=== PATIENT | male | born 1940 | race Caucasian/White ===

== ENCOUNTER 2017-02-07 13:42 | Outpatient (CLI) | payer MEDICARE ==
--- NOTE | 2017-02-07 15:59 | CARDIAC PROCEDURE NOTE ---
DATE OF SERVICE: 02/07/2017 00:00:00 PRIMARY CARE PHYSICIAN: Dr. Vazquez. PROCEDURE: Cardiac treadmill stress test. REASON FOR PROCEDURE: Dyspnea on exertion. CARDIAC RISK FACTORS: Include age, hypertension, hyperlipidemia and family history. PREVIOUS CARDIAC PROCEDURES: No previous cardiac procedures. CLINICAL HISTORY: A 76-year-old male without known coronary artery disease. INITIAL RESTING VITAL SIGNS: BP 144/68, heart rate 64, height 69 inches, weight 178 pounds, BMI 25.5. PROCEDURE AND FINDINGS: The patient's identity and date verified. Consent signed. The patient p erformed treadmill exercise using a [place] protocol completing 5 minutes 55 seconds and completing an estimated workload of 7.0 metabolic equivalents. Predicted METs were 6.2. Maximal blood pressure was 190/98 with a heart rate of 120 beats per minute or 85% of maximum predicted heart rate for age. The blood pressure response to exercise was within normal limits. The patient stopped because of dyspnea. The resting ECG demonstrated normal sinus rhythm with early transition and nonspecific T-wave abnorm alities. Maximum ST segment depression was less than 0.5 mm and upsloping. There were occasional PACs . The 1 minute heart rate recovery was within normal limits. FINAL IMPRESSION 1. Negative stress electrocardiogram for ischemia by electrocardiographic criteria. 2. Negative stress test clinically for angina. 3. Occasional premature atrial contractions. 4. [place] [employer] functional class I. JOB #: [id number] EXT JOB #:[id number]
[2017-02-07 16:11] VITALS: BP 144/68
--- NOTE | 2017-02-11 13:12 | XRAY Report ---
There was no imaging performed for this exam. Procedure notes and results available in the EMR. GLYNN
== END 2017-02-07 13:43 | disposition home or self-care (01) ==
LOC: DI 13:42
PROVIDERS: ATTEND Internal Medicine
DX: R06.00 Dyspnea, unspecified (principal); I10 Essential (primary) hypertension; E78.5 Hyperlipidemia, unspecified
CPT/HCPCS: 93017

== ENCOUNTER 2018-09-27 17:45 | Emergency (ER) | payer MEDICARE ==
[2018-09-27 17:51] VITALS: BP 177/79
--- NOTE | 2018-09-27 18:50 | ED Physician Documentation ---
PD HPI LOWER EXT INJURY - Stated complaint Stated Complaint: RT ANKLE INJURY - Chief complaint Chief Complaint: Trauma Ext - History obtained from History obtained from: Patient, Friend - History of Present Illness PD HPI LOW EXT INJURY LOCATION: Right, Lower leg Type of injury: Fall Where injury occurred: Home Timing - onset: Today Timing - details: Abrupt onset Associated symptoms: Swelling. No: Numbness - Additional information Additional information: Trip and fall with isolated right leg fracture, no other injuries. He is able to walk and bear weight. Declines pain medication. Review of Systems Constitutional: reports: Reviewed and negative Throat: reports: Reviewed and negative Cardiac: reports: Reviewed and negative PD PAST MEDICAL HISTORY - Past Medical History Cardiovascular: Hypertension, High cholesterol Respiratory: None GI: None : Benign prostate hypertrophy HEENT: Glaucoma Psych: Depression - Past Surgical History Past Surgical History: Yes Ortho: Arthroscopic surgery HEENT: Tonsil/Adenoidectomy - Present Medications Home Medications: Ambulatory Orders Medication Instructions Recorded Confirmed Aspirin [Aspir 81] 81 mg PO DAILY 12/19/12 05/12/16 Pravastatin Sodium [Pravachol] 0 mg PO DAILY 12/19/12 05/12/16 Tamsulosin [Flomax] 0.4 mg PO ONCE 12/19/12 05/12/16 hydroCHLOROthiazide [Hydrodiuril] 25 mg PO DAILY 12/19/12 05/12/16 Bimatoprost [Lumigan] 2.5 ml OP DAILY 03/09/13 05/12/16 Citalopram [CeleXA] 20 mg PO DAILY 03/09/13 05/12/16 Timolol [Betimol] 15 ml OP DAILY 03/09/13 05/12/16 Ciprofloxacin HCl [Cipro] 500 mg PO BID #14 tablet 05/12/16 Phenazopyridine HCl [Pyridium] 200 mg PO TID #6 tablet 05/12/16 - Allergies Allergies/Adverse Reactions: Allergies Allergy/AdvReac Type Severity Reaction Status Date / Time No Known Drug Allergies Allergy Verified 09/27/18 17:50 - Social History Does the pt smoke?: Yes Smoking Status: Current every day smoker Does the pt drink ETOH?: Yes PD ED PE NORMAL - Vitals Vital signs reviewed: Yes - General General: Alert and oriented X 3, No acute distress - HEENT HEENT: PERRL, EOMI - Neck Neck: Supple, no meningeal sign, No bony TTP - Extremities Extremities: Other (TTP Mid R tib fib and lat ankle, NVI foot) - Neuro Neuro: Alert and oriented X 3, Normal speech Results - Vitals Vitals: Vital Signs - 24 hr 09/27/18 09/27/18 17:49 17:50 Temperature 36.5 C Heart Rate 58 L Respiratory 17 Rate Blood Pressure 177/79 H O2 Saturation 97 Oxygen O2 Source Room air PD MEDICAL DECISION MAKING - ED course ED course: 78-year-old gentleman with an isolated right mid fibula frx. He is pretty spry but it seemed a little foolhardy to consider to make him completely weightbearing the case was discussed by phone with Dr. Huerta who agreed that he can go into a walking boot and do partial weightbearing with a walker pending follow-up. Departure - Departure Disposition: 01 Home, Self Care Clinical Impression: Right fibular fracture Qualifiers: Encounter type: initial encounter Fibula location: shaft Fracture type: closed Fracture morphology: oblique Fracture alignment: displaced Qualified Code(s): S82.431A - Displaced oblique fracture of shaft of right fibula, initial encounter for closed fracture Condition: Good Record reviewed to determine appropriate education?: Yes Instructions: ED Fx Lower Ext Follow-Up: [facility] [Provider Group] Comments: As discussed the orthopedic surgeon felt that she could do partial weightbearing on the right leg pending follow-up, call them on Saturday for follow-up this week. Keep the boot on at all times. Do not drive. Tylenol as needed for pain.
--- NOTE | 2018-09-27 18:51 | XRAY Report ---
Reason: twisted ankle Procedure Date: 09/27/2018 Accession Number: [id number] / [id number] Procedure: XR - Ankle 3 View RT CPT Code: FULL RESULT: EXAM: RIGHT ANKLE RADIOGRAPHY EXAM DATE: 09/27/2018 05:58 PM. CLINICAL HISTORY: Twisted ankle. COMPARISON: None. TECHNIQUE: 3 views. FINDINGS: Bones: There is a oblique fracture of the mid right fibula diaphysis. No tibia fracture identified. 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 There is no subluxation or dislocation. Soft Tissues: There are moderate arterial vascular calcifications. There is a plantar calcaneal spur. IMPRESSION: 1. Positive for an oblique fracture in the mid right fibula diaphysis. 2. Normal alignment at the ankle. RADIA
--- NOTE | 2018-09-27 18:56 | XRAY Report ---
Reason: pain Procedure Date: 09/27/2018 Accession Number: [id number] / [id number] Procedure: XR - Tib/Fib RT CPT Code: FULL RESULT: EXAM: RIGHT TIBIA/FIBULA RADIOGRAPHY EXAM DATE: 09/27/2018 06:02 PM. CLINICAL HISTORY: Pain. COMPARISON: None. TECHNIQUE: 2 views. FINDINGS: Bones: There is comminuted fracture involving the middle third of the diaphysis of the fibula. No significant displacement. Joints: The visualized knee and ankle joints are normal. No effusions. Soft Tissues: Normal. No soft tissue swelling. IMPRESSION: Fracture of the middle third of the fibula diaphysis. RADIA
== END 2018-09-27 19:12 | disposition home or self-care (01) ==
LOC: ED 17:45
DX: S82.431A Displaced oblique fracture of shaft of right fibula, initial encounter for closed fracture (principal); W01.0XXA Fall on same level from slipping, tripping and stumbling without subsequent striking against object, initial encounter; Y92.009 Unspecified place in unspecified non-institutional (private) residence as the place of occurrence of the external cause; I10 Essential (primary) hypertension; E78.00 Pure hypercholesterolemia, unspecified; F32.9 Major depressive disorder, single episode, unspecified; N40.0 Benign prostatic hyperplasia without lower urinary tract symptoms; H40.9 Unspecified glaucoma; F17.200 Nicotine dependence, unspecified, uncomplicated; Z79.82 Long term (current) use of aspirin
CPT/HCPCS: 99283

== ENCOUNTER 2018-11-05 09:48 | Day surgery (SDC) | payer MEDICARE ==
[2018-11-05] MEDS ORDERED: LACTATED RINGERS 1,000 ML IV ONE (10:54)
[2018-11-05] MEDS ORDERED: MIDAZOLAM 2 MG/2 ML VIAL IVP ONE (11:39)
[2018-11-05] MEDS ORDERED: fentaNYL 250 MCG/5 ML VIAL IVP ONE (11:39)
[2018-11-05 12:40] VITALS: BP 149/75
== END 2018-11-05 09:49 | disposition home or self-care (01) ==
LOC: SDS 09:48
PROVIDERS: ATTEND Internal Medicine
PROC: 0DBK8ZZ Excision of Ascending Colon, Via Natural or Artificial Opening Endoscopic (ICD-10-PCS; principal; 2018-11-05 11:00)
DX: Z12.11 Encounter for screening for malignant neoplasm of colon (principal); D12.2 Benign neoplasm of ascending colon; K64.0 First degree hemorrhoids; K57.30 Diverticulosis of large intestine without perforation or abscess without bleeding
CPT/HCPCS: 45380; J3010; J7120

== ENCOUNTER 2020-11-02 10:16 | Outpatient (CLI) | payer MEDICARE | END 2020-11-02 10:17 | disposition home or self-care (01) | LOC: DI 10:16 | PROVIDERS: ATTEND Nurse Practitioner Family | DX: R06.09 Other forms of dyspnea (principal); R01.1 Cardiac murmur, unspecified; I08.2 Rheumatic disorders of both aortic and tricuspid valves | CPT/HCPCS: 93306 ==

== ENCOUNTER 2020-11-10 12:10 | Outpatient (CLI) | payer MEDICARE ==
[2020-11-10] MEDS ORDERED: REGADENOSON 0.4 MG/5 ML SYRINGE IVP ONE ×2 (14:29→15:13)
[2020-11-10] MEDS ORDERED: AMINOPHYLLINE 500 MG/20 ML VIAL ONE (14:29)
--- NOTE | 2020-11-10 16:52 | Nuclear Medicine Report ---
PROCEDURE: Rest and exercise myocardial perfusion SPECT with gated imaging and ejection fraction INDICATIONS: DYSPNEA ON EXERTION RADIOPHARMACEUTICAL: 14.32 mCi Tc-99m Myoview IV at rest and 42.5 mCi Tc-99m Myoview IV at peak exer cise. [id number] was performed. TECHNIQUE: Radiopharmaceutical was injected at peak stress test, and also at rest. SPECT images wer e obtained. SPECT myocardial perfusion images were displayed in short axis, horizontal long axis, an d vertical long axis views. Gated images were reviewed using AutoQUANT software. COMPARISON: None available. FINDINGS: Raw data: There is good myocardial labeling by radiotracer. No significant motion artifacts. Lung- to-heart ratio is 0.38 (normal is less than 0.46 for tetrafosmin tracer). Left ventricle function: Gated images demonstrate normal left ventricle wall thickening. No segment al wall motion abnormality. No transient ischemic dilation; TID is 1.19 (normal less than 1.30). Th e left ventricle resting end-diastolic volume is 80 mL. Left ventricle stress ejection fraction is 6 6%; normal values are above 45%. Myocardial perfusion: Apparent perfusion abnormality involving the mid to distal inferolateral wall n ormalizes with prone imaging in keeping with soft tissue attenuation artifact. There is also probable smaller distal anteroseptal soft tissue attenuation artifact which also appears to normalize on pron e imaging. Otherwise, no fixed or reversible perfusion defects are seen. IMPRESSION: Negative examination. No convincing fixed or reversible perfusion defects. Normal left ventricular stress ejection fraction. PQRS ATTESTATIONS: Measure 322 - Is this imaging test primarily performed on a low-risk surgery patient for preoperative evaluation within 30 days preceding their low-risk non-cardiac surgery? Low-risk surgery is defined as cardiac or myocardial infarction less than 1%, including (but not limited to) endoscopic pr ocedures, superficial procedures, cataract surgery, and excisional breast surgery: Answer: No Measure 323 - Is this imaging test performed primarily for the monitoring of an asymptomatic patient who had percutaneous coronary intervention on the visit date or within 2 years of the visit date? An swer: No Measure 324 - Is this imaging test performed primarily for the initial detection and risk assessment on an asymptomatic, low coronary heart disease patient? Low CHD risk definition = clinicians should consider the maximum number of available patient factors used to estimate risk based on [place] (A TP III criteria), typically age, gender, diabetes, smoking status, and use of blood pressure medicati on, and integrate age appropriate estimates for missing elements, such as LDL or standard blood press ure. Answer: No Reviewed by: North Son MD on 11/10/2020 4:50 PM PDT Approved by: North Son MD on 11/10/2020 4:50 PM PDT Station ID: [id number]
--- NOTE | 2020-11-10 17:06 | Nuclear Medicine Report ---
Patient was unable to tolerate exercise therefore the pharmaceutical stress was performed with 0.4 mg IV Lexiscan. Reviewed by: North Son MD on 11/10/2020 4:53 PM PDT Approved by: North Son MD on 11/10/2020 4:53 PM PDT Addended on 11/10/2020 4:53:19 PM by North Son MD. PROCEDURE: Rest and exercise myocardial perfusion SPECT with gated imaging and ejection fraction INDICATIONS: DYSPNEA ON EXERTION RADIOPHARMACEUTICAL: 14.32 mCi Tc-99m Myoview IV at rest and 42.5 mCi Tc-99m Myoview IV at peak exer cise. [id number]-[id number] was performed. TECHNIQUE: Radiopharmaceutical was injected at peak stress test, and also at rest. SPECT images wer e obtained. SPECT myocardial perfusion images were displayed in short axis, horizontal long axis, an d vertical long axis views. Gated images were reviewed using AutoQUANT software. COMPARISON: None available. FINDINGS: Raw data: There is good myocardial labeling by radiotracer. No significant motion artifacts. Lung- to-heart ratio is 0.38 (normal is less than 0.46 for tetrafosmin tracer). Left ventricle function: Gated images demonstrate normal left ventricle wall thickening. No segment al wall motion abnormality. No transient ischemic dilation; TID is 1.19 (normal less than 1.30). Th e left ventricle resting end-diastolic volume is 80 mL. Left ventricle stress ejection fraction is 6 6%; normal values are above 45%. Myocardial perfusion: Apparent perfusion abnormality involving the mid to distal inferolateral wall n ormalizes with prone imaging in keeping with soft tissue attenuation artifact. There is also probable smaller distal anteroseptal soft tissue attenuation artifact which also appears to normalize on pron e imaging. Otherwise, no fixed or reversible perfusion defects are seen. IMPRESSION: Negative examination. No convincing fixed or reversible perfusion defects. Normal left ventricular stress ejection fraction. PQRS ATTESTATIONS: Measure 322 - Is this imaging test primarily performed on a low-risk surgery patient for preoperative evaluation within 30 days preceding their low-risk non-cardiac surgery? Low-risk surgery is defined as cardiac or myocardial infarction less than 1%, including (but not limited to) endoscopic pr ocedures, superficial procedures, cataract surgery, and excisional breast surgery: Answer: No Measure 323 - Is this imaging test performed primarily for the monitoring of an asymptomatic patient who had percutaneous coronary intervention on the visit date or within 2 years of the visit date? An swer: No Measure 324 - Is this imaging test performed primarily for the initial detection and risk assessment on an asymptomatic, low coronary heart disease patient? Low CHD risk definition = clinicians should consider the maximum number of available patient factors used to estimate risk based on [place] (A TP III criteria), typically age, gender, diabetes, smoking status, and use of blood pressure medicati on, and integrate age appropriate estimates for missing elements, such as LDL or standard blood press ure. Answer: No Reviewed by: North Son MD on 11/10/2020 5:04 PM PDT Approved by: North Son MD on 11/10/2020 5:04 PM PDT Station ID: [id number]
== END 2020-11-10 12:11 | disposition home or self-care (01) ==
LOC: DI 12:10
PROVIDERS: ATTEND Nurse Practitioner Family
DX: R06.09 Other forms of dyspnea (principal)
CPT/HCPCS: 78452; 93017; A9500; J2785

== ENCOUNTER 2020-11-24 13:27 | Outpatient (CLI) | payer MEDICARE ==
[2020-11-24] MEDS ORDERED: ALBUTEROL 1 PUFF INH STA (15:28)
== END 2020-11-24 13:28 | disposition home or self-care (01) ==
LOC: RT 13:27
PROVIDERS: ATTEND Nurse Practitioner Family
DX: R06.09 Other forms of dyspnea (principal)
CPT/HCPCS: 94060; 94727; 94729

== ENCOUNTER 2023-04-24 09:18 | Outpatient (CLI) | payer MEDICARE | END 2023-04-24 09:19 | disposition home or self-care (01) | LOC: DI 09:18 | PROVIDERS: ATTEND Internal Medicine | DX: R06.09 Other forms of dyspnea (principal); I08.3 Combined rheumatic disorders of mitral, aortic and tricuspid valves; I49.1 Atrial premature depolarization | CPT/HCPCS: 93306 ==